=== PATIENT | male | born 1935 | race Two or more races ===

== ENCOUNTER 2019-07-21 02:51 | Inpatient (IN) | payer BC, OTHER ==
[~2019-07-21] VITALS: Ht 175.3 cm; Wt 75.6 kg
[2019-07-21] MEDS ORDERED: SODIUM CHLORIDE 0.9% 1,000 ML IV ONE (03:45)
[2019-07-21] MEDS ORDERED: ONDANSETRON HCL 4 MG/2 ML VIAL IV ONE (03:45)
[2019-07-21] MEDS ORDERED: MORPHINE SULF INJ 2 MG/ML SYRINGE 1ML IV ONE (03:45)
[2019-07-21 03:53] LABS: Basophils # (auto) 0 10 ^3/uL (0-0.2); Basophils % (auto) 0.1 % (0.0-2.0); Eosinophils # (auto) 0 10 ^3/uL (0-0.8); Eosinophils % (auto) 0.2 % (0.0-7.0); Hematocrit 28.1 % (41.0-53.0); Hemoglobin 9.2 g/dL (13.5-17.5); Lymphocytes # (auto) 0.9 10 ^3/uL (0.4-5.4); Mean Corpuscular Hemoglobin 29.5 pg (28.0-32.0); Mean Corpuscular Hgb Conc. 32.7 g/dL (32.0-36.0); Mean Corpuscular Volume 90.3 fL (80.0-100.0); Monocytes # (auto) 1.1 10 ^3/uL (0-1.3); Monocytes % (auto) 6.2 % (0.0-12.0); Neutrophils # (auto) 16.2 10 ^3/uL (1.6-8.6); Neutrophils % (auto) 88.5 % (37.0-80.0); Platelet Count (auto) 345 10^3/uL (140-450); Red Blood Cells 3.12 10^6/uL (4.5-5.90); Red Cell Distribution Width 17.4 % (11.8-14.3); White Blood Cell 18.3 10^3/uL (4.4-10.8)
[2019-07-21 04:07] LABS: INR 1.09 (0.9-1.15)
[2019-07-21 04:11] LABS: Albumin 2.1 g/dL (3.4-5.0); BUN/Creatinine Ratio 28.6; Calcium 8.5 mg/dL (8.5-10.1); Potassium 4.3 mmol/L (3.5-5.1)
[2019-07-21 04:14] LABS: Bilirubin, Total 0.6 mg/dL (0.2-1.0); Total Protein 6.8 g/dL (6.4-8.2)
[2019-07-21] MEDS ORDERED: PPN PER PHARMACY 0 ML IV SCH (06:00)
[2019-07-21] MEDS ORDERED: ONDANSETRON HCL 4 MG/2 ML VIAL IV PRN (06:00)
[2019-07-21 07:05] LABS: Phosphorus 2.8 mg/dL (2.5-4.90)
[2019-07-21 07:09] LABS: Pre Albumin 8.6 mg/dL (20.0-40.0)
--- NOTE | 2019-07-21 07:52 | NUR ---
MS admit from ER FIDELIA RING admitted to tele/MS after SBAR received. Patient oriented to Adelia Rabago, primary RN, unit, room, bed, and unit policies regarding patient care and visiting hours. Patient weighed by bedscale and encouraged to call if they need something. All questions and concerns addressed, patient verbalized understanding. Note: PT IS AWAKE AND ALERT, NO SIGNS OF DISTRESS NOTED AT THIS TIME, WILL CONTINUE TO MONITOR.
[2019-07-21 08:30] VITALS: BP 115/64
[2019-07-21] MEDS: cefTRIAXone 1GM/50ML D5W 50 ML IV SCH (09:17)
[2019-07-21] MEDS: PANTOPRAZOLE 40 MG/10 ML VIAL INJ IV SCH (09:17)
--- NOTE | 2019-07-21 09:30 | NUR ---
Spoke to Grand-daughter/primary caregiver- Cassidy - Medications Medication List, unknown dosages at this time: Lipitor Aspirin Prilosec Tylenol 500mg Q6H PRN pain 1-6 [place] 5/325 mg Q6H PRN pain 7-10 Ativan Ambien Insulin
[2019-07-21] MEDS ORDERED: ENOXAPARIN SOD 40 MG/0.4 ML SYRINGE SC SCH (10:00)
[2019-07-21] MEDS ORDERED: ACET5SOL5 PO (10:05)
[2019-07-21] MEDS ORDERED: HYDR-4833 PO (10:05)
--- NOTE | 2019-07-21 11:25 | NUR ---
WOUND CARE NOTE: Wound care in to see patient per wound care request regarding wounds/pressure injuries that are noted present on admission. Patient is 83 years old male admitted due to dislodged G Tube. Patient is resting in bed in Rm. 203A. Patient is awake but not oriented. Patient appears to be in no pain using [place] Faces Pain Scale. Patient is this and prominent bony prominences. He need assistance in turning and repositioning and his Yoandy score is 12. Skin/wound assessment done with the assistance of patient's nurse, WARD Delvalle. Noted patient's medial sacrum has 5x3x0.3cm necrotic pressure injury. Wound bed is 50% red, 40 % maguire slough, 10% black eschar, clarence wound is bright and dark red. Moderate amount of serous drainage noted on old dressing,no odor noted. Patient's Rt. and Lt posterolateral heel has 3x2cm pressure injury covered with dark brown hyperkeratotic skin. clarence wound is pink/red, slowly blanching. Bilateral heel pressure injuries looks old and resolving, no drainage/odor noted. Photograph of patient's wounds are taken upon admission for reference. Patient's sacral and bilateral heel pressure injuries are Unstageable at this time due to presence of necrotic tissue. Cleansed patient's heels with Betadine and left open to air. Cleansed sacral pressure injury with wound cleanser,patted dry with gauze, applied Thera honey gauze and covered with Opti foam sacral dressing. Patient tolerated well, repositioned for comfort facing his Lt. side, redistributed pressure points with pillows. Bed in low position, call lopez within reach, bed alarm on. RECOMMENDATION: Nursing to continue with Daily cleaning of bilateral heels with Betadine and Daily/PRN dressing change to sacral wound per MD order, Dietary consult, surgical consult for possible sacral wound debridement , frequent turning and repositioning schedule as condition permits, redistribute pressure points with pillows, air mattress (ordered), elevate heels on pillows, continue monitoring by wound care while patient is hospitalized. Addendum: 07/21/19 at 1636 by Ramona Whittaker RN Amended: Links added.
[2019-07-21] MEDS: InsuLIN REG 1unit/0.01ml Soln (100units/ml) SC SCH ×2 (12:00→18:00)
[2019-07-21] MEDS ORDERED: DEXTROSE (50%) 50ML SYRG IV SCH (12:00)
--- NOTE | 2019-07-21 12:35 | NUR ---
SPOKE TO SON YAS AND GRAND DAUGHTER KUMAR, RECEIVED INFORMATION THAT PT IS DNR UNDER [facility], DR. BROWN INFORMED. DNR FORM SIGNED BY DR. BROWN.
--- NOTE | 2019-07-21 13:37 | NUR ---
AIR MATTRESS: Air mattress ordered at [facility],Reference # [id number]; ETA 07/21/19 @1933, Call [facility] if need to follow up at [phone] Addendum: 07/21/19 at 1338 by Ramona Whittaker RN Amended: Links added.
[2019-07-21] MEDS: ACCU-CHEK COMFORT CURVE STRIP VI SCH ×2 (13:40→18:28)
--- NOTE | 2019-07-21 18:10 | NUR ---
PT TRANSFERRED TO AIR MATTRESS.
--- NOTE | 2019-07-21 18:15 | NUR ---
LOW BLOOD SUGAR BLOOD GLUCOSE WAS 6MG/DL, RECHECKED 57MG/DL. WILL GIVE D50 ORDERED
--- NOTE | 2019-07-21 18:55 | NUR ---
PAGED DR. GARCIA RE: LOW BLOOD SUGAR
--- NOTE | 2019-07-21 19:08 | NUR ---
SPOKE WITH DR. GARCIA MADE AWARE OF PT'S LOW BLOOD SUGAR, HE ORDERED HYPOGLYCEMIA PROTOCOL. AND GIVE ANOTHER D50 IF BLOOD SUGAR IS BELOW 100MG/DL.
--- NOTE | 2019-07-21 19:24 | NUR ---
BLOOD SUGAR CHECKED 125MG/DL.
[2019-07-21 20:56] VITALS: BP 130/70
[2019-07-21] MEDS: PPN PER PHARMACY IV NR ×8 (21:54)
[2019-07-22] MEDS: ACCU-CHEK COMFORT CURVE STRIP VI SCH ×4 (01:31→18:13)
[2019-07-22 04:50] VITALS: BP 97/48
[2019-07-22] MEDS: InsuLIN REG 1unit/0.01ml Soln (100units/ml) SC SCH ×4 (06:00→18:15)
[2019-07-22 06:13] LABS: Basophils # (auto) 0.1 10 ^3/uL (0-0.2); Basophils % (auto) 0.4 % (0.0-2.0); Eosinophils # (auto) 0 10 ^3/uL (0-0.8); Eosinophils % (auto) 0.2 % (0.0-7.0); Hematocrit 27.4 % (41.0-53.0); Hemoglobin 9.2 g/dL (13.5-17.5); Lymphocytes # (auto) 0.8 10 ^3/uL (0.4-5.4); Lymphocytes % (auto) 5.5 % (10.0-50.0); Mean Corpuscular Hgb Conc. 33.7 g/dL (32.0-36.0); Mean Corpuscular Volume 89.1 fL (80.0-100.0); Monocytes # (auto) 0.8 10 ^3/uL (0-1.3); Neutrophils # (auto) 13.8 10 ^3/uL (1.6-8.6); Neutrophils % (auto) 88.9 % (37.0-80.0); Platelet Count (auto) 390 10^3/uL (140-450); Red Blood Cells 3.07 10^6/uL (4.5-5.90); Red Cell Distribution Width 17.2 % (11.8-14.3); White Blood Cell 15.5 10^3/uL (4.4-10.8)
[2019-07-22 06:35] LABS: Potassium 3.6 mmol/L (3.5-5.1)
--- NOTE | 2019-07-22 06:43 | NUR ---
RIGHT FA 22G STARTED NOW.
[2019-07-22 06:45] LABS: Albumin 1.9 g/dL (3.4-5.0); BUN/Creatinine Ratio 33.3; Bilirubin, Total 0.5 mg/dL (0.2-1.0); Calcium 8.5 mg/dL (8.5-10.1); Magnesium 2.2 mg/dL (1.6-2.6); Phosphorus 3.2 mg/dL (2.5-4.90); Total Protein 6.4 g/dL (6.4-8.2)
--- NOTE | 2019-07-22 07:00 | NUR ---
Opening Shift Note Received report on the patient. Awake lying in bed. Patient shows no signs of distress at this time. Discussed the plan of care with the patient. Bed in lowest position, side rails up x2, and the call light is within reach. Will continue to monitor.
[2019-07-22] MEDS ORDERED: SODIUM CHLORIDE LOCK 10 ML ONE (08:22)
[2019-07-22] MEDS ORDERED: LIDOCAINE VISCOUS 2% 15ML UD ONE (08:22)
[2019-07-22] MEDS ORDERED: FLUMAZENIL 0.1 MG/ML INJ 10ML MDV IV ONE (08:22)
[2019-07-22] MEDS ORDERED: NALOXONE HCL 0.4 MG/ML VIAL ONE (08:22)
[2019-07-22] MEDS ORDERED: diphenhdrAMINE HCL 50 MG/1 ML VL ONE (08:23)
--- NOTE | 2019-07-22 08:29 | NUR ---
OR Patient down to OR for PEG Tube replacement.
[2019-07-22 09:00] VITALS: BP 96/61
[2019-07-22] MEDS: cefTRIAXone 1GM/50ML D5W 50 ML IV SCH (09:09)
[2019-07-22] MEDS: fentaNYL CITRATE 100 MCG/2 ML VL ONE ×2 (09:12→09:15)
[2019-07-22] MEDS: MIDAZOLAM HCL 5 MG/ML-1ML VIAL ONE ×2 (09:12→09:15)
[2019-07-22] MEDS: PANTOPRAZOLE 40 MG/10 ML VIAL INJ IV SCH (10:54)
--- NOTE | 2019-07-22 11:21 | NUR ---
MD Called Dr. Sebastian per Dr Davis to see if the patient could be discharged or if the patient needs to stay another day. Per Dr. Sebastian the patient should stay to make sure the PEG tube works. Dr Sebastian also stated that he would talk to Dr Davis about the stay.
[2019-07-22 13:11] VITALS: BP 115/71
--- NOTE | 2019-07-22 14:48 | NUR ---
Nutrition Assessment Notes Please refer to link for full assessment notes. Est Energy needs: 9434-6913 kcals (23-25 kcal/kgBW) Est Protein needs: 65-72 gms/day (1.0-1.1 gm/kgBW) Will continue to monitor and reassess prn. Addendum: 07/22/19 at [address] Amended: Links added.
[2019-07-22 17:00] VITALS: BP 116/62
--- NOTE | 2019-07-22 19:08 | NUR ---
Closing Shift Note Gave report to WARD Villatoro. Patient shows no signs of distress.
--- NOTE | 2019-07-22 19:43 | NUR ---
received report from day rn poc reviewed
[2019-07-22] MEDS: PPN PER PHARMACY IV NR ×8 (19:51)
[2019-07-22] MEDS ORDERED: PPN PER PHARMACY IV NR ×9 (20:00)
--- NOTE | 2019-07-22 20:00 | NUR ---
pt pulled out both iv's mittens applied, reoriented pt to poc, charge nurse notified of pts need for sitter
[2019-07-22 21:33] VITALS: BP 111/57
--- NOTE | 2019-07-22 22:50 | NUR ---
sitter at bedside for pts safety
--- NOTE | 2019-07-23 00:25 | NUR ---
Patient transferred to room 286B Patient transferred to room 286B. No signs/symptoms of distress upon departure. Patient care endorsed to WARD Boyd. Addendum: 07/24/19 at 0054 by RUBEN MCNULTY RN RN WRONG DATE: 07-23-2019 CORRECT DATE: 07-24-2019
--- NOTE | 2019-07-23 00:31 | NUR ---
pt moved to 249a with all property, resp even and unlabored, sitter at bedside for pts safety
[2019-07-23] MEDS: ACCU-CHEK COMFORT CURVE STRIP VI SCH ×4 (02:06→18:42)
[2019-07-23 05:00] VITALS: BP 95/54
[2019-07-23] MEDS: InsuLIN REG 1unit/0.01ml Soln (100units/ml) SC SCH ×4 (05:37→18:00)
[2019-07-23 06:02] VITALS: BP 95/54
--- NOTE | 2019-07-23 07:00 | NUR ---
Opening Shift Note received report on the patient. Awake lying in bed. Patient shows no signs of distress at this time. Discussed the plan of care with the patient. Bed in lowest position, side rails up x2, and the call light is within reach. Will continue to monitor.
--- NOTE | 2019-07-23 07:10 | NUR ---
report given to am nurse poc reviewed
[2019-07-23 07:35] LABS: Potassium 3.1 mmol/L (3.5-5.1)
[2019-07-23 07:53] LABS: Albumin 1.7 g/dL (3.4-5.0); BUN/Creatinine Ratio 39.4; Bilirubin, Total 0.4 mg/dL (0.2-1.0); Magnesium 2.2 mg/dL (1.6-2.6); Phosphorus 2.8 mg/dL (2.5-4.90)
[2019-07-23 09:00] VITALS: BP_SYST 124; BP_SYST 148; BP_DIAS 54; BP_DIAS 70
[2019-07-23] MEDS: PANTOPRAZOLE 40 MG/10 ML VIAL INJ IV SCH (09:58)
[2019-07-23] MEDS: cefTRIAXone 1GM/50ML D5W 50 ML IV SCH (09:58)
--- NOTE | 2019-07-23 10:16 | NUR ---
Called and left a message for the son Naman to discuss the patient being discharged tomorrow.
[2019-07-23] MEDS ORDERED: POTASSIUM EFFERVESENT TAB 25 MEQ GT ONE (10:30)
[2019-07-23] MEDS: POTASSIUM CHL 20MEQ/100ML 100 ML IV SCH ×2 (12:00→13:46)
[2019-07-23 13:00] VITALS: BP_SYST 116; BP_SYST 130; BP_DIAS 61; BP_DIAS 84
--- NOTE | 2019-07-23 15:04 | NUR ---
Called son Naman again and left a message regarding his discharge and tube feeding.
[2019-07-23 17:00] VITALS: BP_SYST 117; BP_SYST 123; BP_DIAS 80; BP_DIAS 81
--- NOTE | 2019-07-23 19:30 | NUR ---
Opening Shift Note Assumed care of patient, awake and alert x4. Patient denies pain or shortness of breath at this time. Instructed on plan of care and to call for assistance as needed. Bed is locked in lowest position, side rails x 2 are up, call light is within reach, bed alarm is on, and sitter is noted at the bedside for safety precautions.
[2019-07-23] MEDS ORDERED: PPN PER PHARMACY IV NR ×9 (20:00)
--- NOTE | 2019-07-23 21:17 | NUR ---
Spoke with Son Re: Tube Feeding Called and spoke with son, Naman, regarding clarification on the type of tube feeding patient is on at home. Son Naman states that patient takes Glucerna 1.2cal at home. Will notify hospitalist.
--- NOTE | 2019-07-23 21:59 | NUR ---
Spoke with Hospitalist Re: Tube Feeding Notified hospitalist, Dr. Sandy that per report Dr. Davis wanted the patient to start on tube feedings but wanted clarification on the type of tube feeding patient is on at home. Notified Dr. Sandy that this RN was able to get a hold of patient's son and son stated that patient takes Glucerna 1.2cal at home for tube feedings. Orders received from Dr. Sandy to start Glucerna 1.2cal at 25ml and increase feeding as tolerated. Orders read back and verified. Will carry out order as received. Addendum: 07/24/19 at 0055 by RUBEN MCNULTY RN RN Per Dr. Du doss to D/C PPN once patient is started on tube feeding.
[2019-07-23 22:00] VITALS: BP 138/73
[2019-07-23] MEDS ORDERED: Glucerna 1.2 Cal 1Liter BOTTLE GT SCH ×2 (22:00→22:15)
--- NOTE | 2019-07-23 22:30 | NUR ---
shell trim tool setter Aware of Order for Glucerna Tube Feeding Made chargeback analyst Alex aware that this RN received orders from Dr. Sandy to start tube feeding: Glucerna 1.2cal at 25 ml/hr and increase as tolerated. Per WARD Tatum he will get this RN a bottle of Glucerna 1.2cal. Patient is currently on PPN at 55ml/hr.
[2019-07-24] MEDS: ACCU-CHEK COMFORT CURVE STRIP VI SCH ×3 (00:04→18:31)
[2019-07-24] MEDS: InsuLIN REG 1unit/0.01ml Soln (100units/ml) SC SCH ×3 (00:05→18:31)
--- NOTE | 2019-07-24 00:17 | NUR ---
Report Given Report given to WARD Boyd. Addendum: 07/24/19 at 0102 by RUBEN MCNULTY RN RN WARD Boyd made aware that patient still needs to start tube feedings and we are still waiting on the Glucerna 1.2cal.
--- NOTE | 2019-07-24 00:25 | NUR ---
Patient transferred to room 286B Patient transferred to room 286B. No signs/symptoms of distress upon departure. Patient care endorsed to WARD Boyd.
--- NOTE | 2019-07-24 00:30 | NUR ---
ASSUMED CARE OF PATIENT Patient transferred to room 286-b with sitter. Patient is A&o x3, currently on room air with no s/s of SOB or distress. Denies pain at this time. PIV in left wrist is intact ad patent. Currently infusing PPN at 55ml/hr. G-tube intact; placement verified via auscultation. Abdominal binder in place. Wounds assessed; dressing on sacrum is CDI. Heels are open to air and floated. Patient is currently on bedrest, stating he uses a wheelchair or walker at baseline. POC discussed with patient who verbalizes understanding, however requires reinforcement. Bed is in low locked position with side rails up x2. Call light is within reach and patient encouraged to call for assistance when needed. Sitter is at the bedside for safety. Will continue to monitor for changes PRN.
--- NOTE | 2019-07-24 01:10 | NUR ---
TUBE FEEDING Enteral feeding initiating with Glucerna 1.2 sabino At 25ml/hr as ordered.
--- NOTE | 2019-07-24 04:46 | NUR ---
TUBE FEEDING Residual checked and is 0ml. Patient denies nausea or vomiting. No episodes of diarrhea. Patient is tolerating feeding well. Increased as ordered. Feeding now set at 35ml/hr.
[2019-07-24 05:00] VITALS: BP 120/67
[2019-07-24 06:25] LABS: Potassium 3.3 mmol/L (3.5-5.1)
[2019-07-24 06:31] LABS: Albumin 1.7 g/dL (3.4-5.0); BUN/Creatinine Ratio 39.4; Bilirubin, Total 0.3 mg/dL (0.2-1.0); Calcium 7.8 mg/dL (8.5-10.1); Magnesium 2.1 mg/dL (1.6-2.6); Phosphorus 2.7 mg/dL (2.5-4.90)
--- NOTE | 2019-07-24 07:30 | NUR ---
Opening Shift Note RECEIVED REPORT FROM NOC RN. Assumed care of patient, awake and alert. No S/S of distress/SOB or pain. BED IN LOWEST, LOCKED POSITION WITH SIDERAILS UP x2 AND CALL LIGHT WITHIN REACH AND SITTER AT BEDSIDE. Instructed on POC and to call for assist PRN, will continue to monitor for changes Q1hr and PRN.
[2019-07-24 09:00] VITALS: BP 119/72
[2019-07-24] MEDS: cefTRIAXone 1GM/50ML D5W 50 ML IV SCH (10:47)
[2019-07-24] MEDS: PANTOPRAZOLE 40 MG/10 ML VIAL INJ IV SCH (10:48)
--- NOTE | 2019-07-24 11:35 | NUR ---
SPOKE WITH REAL, CONTRACT ENGINEER ABOUT PATIENT BEING DISCHARGED AND HOSPICE BEING RESUMED. REAL ADVISED TO CONFIRM WITH FAMILY THAT THEY WANT THE PATIENT TO RESUME HOSPICE. REAL ALSO ADVISED TO FAX INFORMATION TO HOSPICE PROVIDER.
--- NOTE | 2019-07-24 11:43 | NUR ---
CALLED AND SPOKE WITH SON, RELL, ABOUT DISCHARGE. SON WISHES TO RESUME HOSPICE FOR THE PATIENT.
--- NOTE | 2019-07-24 11:59 | NUR ---
REQUESTED INFORMATION FAXED TO [facility].
[2019-07-24 13:00] VITALS: BP 120/62
[2019-07-24] MEDS ORDERED: LOPERAMIDE HCL 2 MG CAP PO PRN (15:15)
--- NOTE | 2019-07-24 17:48 | NUR ---
SPOKE WITH FREDDIE FROM [facility] REGARDING RESUMING SERVICE FOR THE PATIENT. THEY WILL RESUME SERVICE FOR THE PATIENT TOMORROW. ATTEMPTED TO CONTACT ON-CALL BOILER HOUSE MECHANIC REGARDING TRANSPORTATION FOR THE PATIENT. INFORMED BY PBX THAT ON-CALL BOILER HOUSE MECHANIC CANNOT BE CONTACTED AFTER 1700.
--- NOTE | 2019-07-24 17:53 | NUR ---
SPOKE WITH RELL, PATIENT'S SON REGARDING TRANSPORTATION. HE ADVISED HE WILL COME CUSTOMER SERVICE CORRESPONDENCE CLERK THE PATIENT.
--- NOTE | 2019-07-24 18:04 | NUR ---
RELL, PATIENT'S SON ADVISED HE IS HAVING CAR ISSUES AND IS UNABLE TO PROVIDE TRANSPORTATION FOR THE PATIENT.
--- NOTE | 2019-07-24 18:06 | NUR ---
PLACED CALL TO [facility], WENT TO VOICE MAIL BOX.
--- NOTE | 2019-07-24 18:09 | NUR ---
RELL, PATIENT'S SON, CALLED BACK. HE SPOKE WITH HOSPICE COMPANY WHO STATED THEY DO NOT ARRANGE TRANSPORTATION.
--- NOTE | 2019-07-24 18:13 | NUR ---
CALLED HOSPICE COMPANY AND LEFT MESSAGE FOR CALL-BACK.
--- NOTE | 2019-07-24 18:30 | NUR ---
SPOKE WITH SURVEYOR CHAIN HELPER OF THE HOSPICE COMPANY. THEY WILL WORK ON ARRANGING TRANSPORTATION FOR THE PATIENT.
--- NOTE | 2019-07-24 20:50 | NUR ---
DISCHARGE PLANNING Spoke with Lucy from [facility]. States she is arranging transportation for patient tomorrow, 07/25/19. Working with son, Naman to ensure proper medical equipment is delivered to the home. Charge nurse notified and Hospitalist to be updated as well. Will continue care.
--- NOTE | 2019-07-24 20:50 | NUR ---
OPENING SHIFT NOTE Assumed care of patient who is A&O x3, currently on RA with no s/s of distress. reports soreness on buttocks. Patient turned to left side and pressure off set with pillows. PIV in left wrist is intact and patent. Flushed wit 10ml NS. PEG tube in place, with abdominal binder to prevent patient from pulling. Feeding currently running at 35ml/hr. Residual is 0ml and patient denies any nausea or vomiting. Feeding increased to 50ml/hr as ordered. POC discussed with patient who verbalizes understanding. Bed is in low locked position with side rails up x2. Call light is within reach. Sitter is at the bedside for patient safety. Will continue to monitor for changes PRN.
[2019-07-24 23:21] VITALS: BP 137/68
[2019-07-25] MEDS: ACCU-CHEK COMFORT CURVE STRIP VI SCH ×3 (00:04→12:03)
--- NOTE | 2019-07-25 01:12 | NUR ---
ROUNDS Lanie-care provided for void of light yellow urine and medium, soft brown BM. Patient repositioned for comfort. Pillows used to offset pressure from sacrum and heels. residual checked and is 0ml. New bottle of Glucerna 1.2 Vick hung and tubing changed. Running at 50ml/hr. Will continue to monitor for changes PRN.
[2019-07-25 05:00] VITALS: BP 115/77
[2019-07-25] MEDS: InsuLIN REG 1unit/0.01ml Soln (100units/ml) SC SCH ×3 (05:53→12:00)
[2019-07-25] MEDS: cefTRIAXone 1GM/50ML D5W 50 ML IV SCH (08:46)
[2019-07-25] MEDS: PANTOPRAZOLE 40 MG/10 ML VIAL INJ IV SCH (08:46)
[2019-07-25 08:58] VITALS: BP 124/76
--- NOTE | 2019-07-25 12:10 | NUR ---
MD BROWN AT BED SIDE
[2019-07-25] MEDS ORDERED: IOHEXOL 300 MG/ML 100ML BOTTLE IJ ONE (12:34)
--- NOTE | 2019-07-25 12:38 | NUR ---
RECEIVED CALL FROM JACKIE METCALF, PER JACKIE TRANSPORTATION HAS BEEN SET FOR TODAY BETWEEN [phone] WITH [[employer] [place]]. PHONE #: [phone]
[2019-07-25 12:51] VITALS: BP 138/79
[2019-07-25 14:02] VITALS: BP 138/79
--- NOTE | 2019-07-25 15:16 | NUR ---
Assessment Patient is an 83-year old male who is confused. Assessment was completed with patient josé manuel Florence ). Patient son Naman informed me patient lived home with him but for the meantime patient will stay with his niece. Naman informed me he helps patient with his ADLs. Patient will return home to his prior living arrangements post discharge. Naman informed me patient is on Hospice with [facility] and would like patient to resume service with agency. Advised Naman there is a Social Service consult to resume Hospice. Informed Naman clinical information will be faxed to [facility]. Naman is patient POA. Informed Naman he has the right to participate in all discharge planning. Naman verbalized understanding and agrees to discharge plan. Placed followed up called to [facility], spoke to Art. Per Art order has been received and they will resume service for patient. Transportation has been arranged with [facility] transport ) between 15:00-16:00 via [employer]. Informed WARD Suarez. Addendum: 07/25/19 at 1517 by JACKIE COON Amended: Links added.
--- NOTE | 2019-07-25 15:35 | NUR ---
DC WOUND PHOTOS TAKEN
--- NOTE | 2019-07-25 15:51 | NUR ---
Discharge instructions given as ordered to POA and patients josé manuel Florence. Naman verbalizes understanding. Patient confused at this time and therefore unable to sign DC paperwork. Encourage to follow up with PMD as instructed through [facility]. All questions and concerns addressed. Medication reconciliation form completed and copy given to patient. IV removed with catheter intact, pressure dressing applied, peg tube clamped and secured. Patient left unit via gurney by [facility] transport.No distress noted at time of departure.
== END 2019-07-25 15:45 | disposition hospice, home (50) | DRG 393 ==
LOC: EDBD 02:51 → ER 02:54 → OVERFLOW 02:55 → CENTRAL 07:53 → EAST 07-22 23:45 → WEST WING 07-24 00:24
PROVIDERS: ADMIT Nurse Practitioner; ATTEND Family Medicine
PROC: 3E0G76Z Introduction of Nutritional Substance into Upper GI, Via Natural or Artificial Opening (ICD-10-PCS; 2019-07-22)
PROC: 0DH63UZ Insertion of Feeding Device into Stomach, Percutaneous Approach (ICD-10-PCS; principal; 2019-07-22 09:09)
DX: Z43.1 Encounter for attention to gastrostomy (principal); E43 Unspecified severe protein-calorie malnutrition; I69.354 Hemiplegia and hemiparesis following cerebral infarction affecting left non-dominant side; N39.0 Urinary tract infection, site not specified; D72.829 Elevated white blood cell count, unspecified; I10 Essential (primary) hypertension; Z51.5 Encounter for palliative care; Z66 Do not resuscitate; F03.90 Unspecified dementia, unspecified severity, without behavioral disturbance, psychotic disturbance, mood disturbance, and anxiety; E11.9 Type 2 diabetes mellitus without complications; Z68.24 Body mass index [BMI] 24.0-24.9, adult
CPT/HCPCS: 36415; 80053; 82040; 82962; 83735; 84100; 84478; 85025; 85610; 87040; 96361; 96374; 96375; C9113; G0378; J0696; J1815; J2250; J2405; J7131

== ENCOUNTER 2024-12-06 20:08 | Emergency (ER) | payer MEDICARE, OTHER ==
[~2024-12-06] VITALS: Ht 167.6 cm; Wt 75.0 kg
[~2024-12-06 20:08] MED LIST: ACET-2058 PO; HYDR-4833 PO
[2024-12-06] MEDS: PIPERACILLIN-TAZOB 3.375GM 100 ML IV ONE ×2 (20:10→20:25)
[2024-12-06] MEDS: SODIUM CHLORIDE 0.9% 2,000 ML IV ONE (20:10)
[2024-12-06] MEDS: TRANEXAMIC ACID 1,000 MG in SODIUM CHL 0.9% 100 ML IV ONE (20:10)
[2024-12-06] MEDS: PANTOPRAZOLE 40 MG/10 ML VIAL INJ IV ONE ×2 (20:10→20:26)
[2024-12-06 20:16] VITALS: PULSE 57; RESP 20
[2024-12-06] MEDS: EPINEPHrine HCL 250 ML IV ONE (20:20)
[2024-12-06] MEDS: TRANEXAMIC ACID 10 ML ONE (20:21)
[2024-12-06 20:30] VITALS: TEMP 100.5
[2024-12-06] MEDS: SODIUM CHLORIDE 0.9% 1,000 ML IV ONE (20:30)
--- NOTE | 2024-12-06 20:32 | ED.PDOC ---
CPR-HPI HPI Comments This is an 89 year-old male brought in via EMS for cardiac arrest. Per EMS, patient was last seen normal and talking X45 minutes prior to EMS arrival. CPR was initiated by family prior to ambulance arrival. Per EMS, CPR was performed for 25 minutes, patients' rhythm was Asystole and PEA. Blood sugar was 99. Patient was given X7 rounds of EPI en route. Per EMS, patient had symptoms of fever and nasal congestion over the past day. Patient takes Eliquis at home and has a PMHX of CVA. Patient arrived to the ED unresponsive, CPR in progress, already intubated. At 20:11, ROSC was noted from patient. Patient was given Dextrose and Bicarb at 20:14. Patient received a L femoral central line and orotracheal intubation. IO below the left knee. Nurse attempted Left EJ IV access, however, he blew and caused a small hematoma. No gag reflex, no coronary reflex. Noted black stool in diaper. OG tube has red gastric content, likely blood. Pt appears pale, cyanotic. Pts pulse was lost at 21:14. CPR was reinitiated at this time. There was no success at achieving any vitals. Pt never took any spontaneous breath on his own. Patients time of called at 21:19. Patients family was consulted about the patients current state and agreed with the decision to stop any resuscitative effort. Initial Vitals BP: 0 HR: 0 RR: 0 O2: 0 Temp: 0 Past Medical History: CVA Past Surgical History: Unknown Social History: Unknown Medications: Unknown Allergies: Unknown HPI: Poor Historian. REVIEW OF SYSTEMS: Review of system is limited given the patient cardiopulmonary arrest. Obtained from EMS CONSTITUTIONAL: Denies acute: fever, diaphoresis, chills, generalized weakness. HEAD: Denies acute: headache, photophobia Eyes: Denies acute: Double vision, vision loss, eye pain, eye discharge. EARS: Denies acute: tinnitus, hearing loss, ear discharge, ear pain, THROAT: Denies acute: sore throat, swelling, difficulty swallowing , pain with swallowing, change in voice. NECK: Denies acute: neck pain, neck swelling, stiff neck. HEART: Denies acute : chest pain, palpitations, LUNGS: Denies acute: SOB, wheezing, cough, hemoptysis ABDOMEN: Denies acute: abdominal pain, Nausea, Vomiting, diarrhea, melena , hematemesis, hematochezia SKIN: Denies acute: rash, redness, lesions, itchiness. EXTREMITIES: Denies acute: calf pain, numbness, tingling, weakness, denies pain in extremity. Denies acute: Low back pain. Neuro: Denies acute: focal neurological deficit, motor or sensory focal neurological deficit, tremors, seizure like activity, confusion, dizziness, change in mental status, loss of bowel or bladder function, cauda equina like symptoms. : Denies acute: dysuria, hematuria, flank pain, increase in urinary frequency. PSYCH: Denies acute: hallucination, suicidal ideation, homicidal ideation. PHYSICAL EXAM: General: --CPR in progress. Head: normocephalic, atraumatic. Neck: supple, trachea is midline, no swelling. Throat: Dry oral mucosa. No gag reflex Eyes:, no erythema, no purulent discharge, no proptosis, no icterus. No corneal reflex Heart: Asystole. Lungs: Intubated, CPR in progress, bag-valve mask in progress. Abdomen: , non distended, soft, no guarding, no rebound, + bowel sounds. Neuro: Unresponsive. GCS is 3. Skin: no petechia, no purpura, patient is noted to be cyanotic and pale., not j aundice. Lower extremities: --no - Pitting edema no deformity, no focal swelling, no calf TTP. Face: no apparent facial droop. ED COURSE: DISCLAIMER: This medical document was created using an electronic medical record system with voice recognition software and computerized dictation system. Although this document has been carefully reviewed, there might still be some phonetic and typographical errors. Occasional wrong-word or "sound-alike" substitutions may have occurred due to the inherent limitations of voice recognition software. These areas are purely typographical due to imperfections of the software programs and do not reflect any compromise in the patient's medical care. Please read the chart carefully and recognize, using context, where these substitutions have occurred. Chief Complaint: CPR Time Seen by MD: 20:20 Reviewed Notes: Nurses Notes, Machine Long Goods Helper Notes, Medications, Allergies Allergies: Coded Allergies: NO KNOWN ALLERGIES (Unverified , 07/21/19) Home Meds Reported Medications Hydrocodone-Acetaminophen ([place] 5/325MG) 1 Tab Tb, 1 TAB PO Q6HP PRN for PAIN SCALE 7 THRU 10, #90 TAB 07/21/19 Acetaminophen (Acetaminophen) 160 Mg/5 Ml Kerry, 500 MG PO Q6HP PRN for PAIN SCALE 1 THRU 6, ML 07/21/19 Information Source: Emergency Med Personnel Mode of Arrival: EMS Timing: Minutes Duration: Total time prior hopital: (45) Inital rhythm: Asystole, PEA Treatment: CPR Physical Exam General Appearance: Other (a) HEENT: Other (a) Neck: Other (a) Respiratory: Other (a) Cardiovascular: Other (a) Breast Exam: Other (a) Gastrointestinal: Other (a) Genitalia: Other (a) Pelvic: Other (a) Rectal: Other (a) Extremities: Other (a) Neurologic: Other (a) Cerebellar Function: Other (a) Reflexes: Other (a) Skin: Other (a) Lymphatic: Other (a) Was a procedure done? 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 Indication: Volume resuscitation Room prepared for procedure: Yes Heart Doctor performed hand hygien: Yes Maximal sterile barrier precau: Mask/Eye shield, Sterile gown, Cap, Sterlie gloves, Large sterlie drape Skin Preparation: Chlorhexidine gluconate Skin preparation completely dr: Yes Insertion site: Left, Femoral Central line catheter type: Ghl-innfdlyq-guh dialysis Number of lumens: 3 Central line exchanged over a: Yes Antiseptic ointment applied to: Yes UTO Consent Pt Unresponsive Intubation Indication: Altered Mental Status Intubation Approach: Orotracheal Intubation size: cm UTO Consent Pt Unresponsive Differential Dx CPR Differential Diagnosis: Cardiopulmonary arrest, Dysrhythmia, Myocardial Infarction, Respiratory Failure X-Ray, Labs, Meds, VS Vital Signs Date Time Temp Pulse Resp B/P (MAP) Pulse Ox O2 Delivery O2 Flow Rate FiO2 12/07/24 06:38 212.9 0 0 Ambu-Bag 0 0 12/06/24 21:57 40 18 37/19 (25) 80 100 12/06/24 21:26 36 11 57/28 (38) 12/06/24 21:22 36 161/95 (117) 12/06/24 21:15 36 17 44/19 (27) 72 12/06/24 21:10 36 18 43/24 (30) 74 12/06/24 21:05 34 18 45/25 (32) 75 12/06/24 21:00 30 18 43/20 (28) 71 12/06/24 21:00 33 12/06/24 20:57 33 18 40/17 (25) 70 12/06/24 20:55 42 18 37/18 (24) 71 12/06/24 20:53 43 18 37/18 (24) 76 12/06/24 20:51 39 18 37/19 (25) 81 12/06/24 20:45 40 18 50/15 (27) 74 12/06/24 20:42 46 17 121/100 (107) 12/06/24 20:37 38 18 56/31 (39) 85 12/06/24 20:35 56/12/06/24 20:35 56/31 12/06/24 20:35 56/31 12/06/24 20:31 53 17 85/39 (54) 99 12/06/24 20:30 100.5 79 22 88/49 (62) 98 100.5 12/06/24 20:18 100.5 0 0 0/0 0 100.5 12/06/24 20:16 100.5 57 20 85/64 (71) 97 100.5 12/06/24 20:16 57 20 Mechanical Ventilator+ 100 100 12/06/24 20:15 49 Lab Test 12/06/24 20:25 12/06/24 20:17 12/06/24 20:14 Range/Units Sodium Level 142 136-145 mmol/L Potassium Level 5.0 3.5-5.1 mmol/L Chloride Level 107 98-107 mmol/L Carbon Dioxide Level 13 L 20-31 mmol/L Anion Gap 22 H 5-15 Blood Urea Nitrogen 32 H 9-23 mg/dL Creatinine 1.21 0.700-1.30 mg/dL Glomerular Filtration Rate Calc 58 >90 mL/min BUN/Creatinine Ratio 26.4 H 10.0-20.0 Serum Glucose 194 H 74-106 mg/dL Calcium Level 8.4 L 8.7-10.4 mg/dL Magnesium Level 2.8 H 1.6-2.6 mg/dL Total Bilirubin 0.5 0.2-1.0 mg/dL Aspartate Amino Transferase (AST) > 6000 H 13-40 U/L Alanine Aminotransferase (ALT) 3719 H 7-40 U/L Alkaline Phosphatase 105 46-116 U/L Total Protein 6.3 5.7-8.2 g/dL Albumin 3.3 3.2-4.8 g/dL Prothrombin Time 22.9 H 9.3-11.8 sec Prothrombin Time INR 2.35 H 0.9-1.15 Activated Partial Thromboplast Time 82.3 *H 24.5-34.5 SEC Lactic Acid Level 11.0 *H 0.4-2.0 mmol/L White Blood Count 11.2 H 4.4-10.8 10^3/uL Red Blood Count 3.65 L 4.5-5.90 10^6/uL Hemoglobin 11.4 L 13.5-17.5 g/dL Hematocrit 36.1 L 41.0-53.0 % Mean Corpuscular Volume 99.1 80.0-100.0 fL Mean Corpuscular Hemoglobin 31.4 28.0-32.0 pg Mean Corpuscular Hemoglobin Concent 31.7 L 32.0-36.0 g/dL Red Cell Distribution Width 16.1 H 11.8-14.3 % Platelet Count 94 L 140-450 10^3/uL Mean Platelet Volume 7.7 6.9-10.8 fL Neutrophils (%) (Auto) 37.0-80.0 % Lymphocytes (%) (Auto) 10.0-50.0 % Monocytes (%) (Auto) 0.0-12.0 % Basophils (%) (Auto) 0.0-2.0 % Neutrophils # (Auto) 1.6-8.6 10 ^3/uL Lymphocytes # (Auto) 0.4-5.4 10 ^3/uL Monocytes # (Auto) 0-1.3 10 ^3/uL Differential Total Cells Counted 100.0 100 Neutrophils % (Manual) 40 37.0-80.0 Band Neutrophils % (Manual) 12 Lymphocytes % (Manual) 40 10.0-50.0 Monocytes % (Manual) 8 0-12 Eosinophils % (Manual) 0 0-7 Basophils % (Manual) 0 0.0-2.0 Metamyelocytes % (manual) 0 Myelocytes % (Manual) 0 Promyelocytes % (Manual) 0 Blast Cells % (Manual) 0 Nucleated Red Blood Cells 2.0 % Reactive Lymphocytes 0 Platelet Estimate Decreased Anisocytosis (manual) Moderate Raj Cells Few Troponin I High Sensitivity 328 *H </=54 ng/L Microbiology Date/Time Source Procedure Growth Status 12/06/24 21:08 Trachea Gram Stain - Final Complete 12/06/24 21:08 Respiratory Culture - Final Staphylococcus aureus Streptococcus pneumoniae Complete 12/06/24 20:25 Blood Blood Culture - Final Eikenella corrodens Complete 12/06/24 20:17 Blood Blood Culture - Final Streptococcus pneumoniae Complete [place] [id number] Ph: [phone] DIAGNOSTIC IMAGING Diagnostic Imaging Report : [id number] Signed PATIENT: FIDELIA RING TACCT: [id number] UNIT: [id number] : 1935 LOC: ER ROOM / BED: / AGE / SEX: 89 / M ADM STATUS: REG ER SERVICE 29 ORDERING PHYSICIAN: SCOT WALSH DO PROCEDURE(s): CXRP - CHEST PORTABLE REASON: CARDIOPULMONARY ARREST ORDER NUMBER(s): [id number], ACCESSION NUMBER(s): [id number] EXAM: XY CHEST PORTABLE CLINICAL HISTORY: CARDIOPULMONARY ARREST TECHNIQUE: Single AP view of the chest WID: COMPARISON: None FINDINGS: Lines and tubes: Endotracheal tube projects 3.6 cm above the blaine. Gastric tube descends beneath the level of the hemidiaphragms and tip not visualized in field of view. Defibrillator pads project over the bilateral chest. Scattered BBs project over the jrror-ujvmsdb-ebws-left chest. Chest: Mild cardiomegaly with pulmonary vascular congestion. Calcified plaque projects over the aortic arch. Mixed airspace opacities in the left greater than right lungs. No pneumothorax. The osseous structures are grossly intact. Degenerative changes of the bilateral shoulders. IMPRESSION: 1. Endotracheal and gastric tubes in place as described. 2. Mild cardiomegaly and pulmonary vascular congestion. 3. Mixed airspace opacities in the wcdk-pkpqmui-zmhe-right lungs. DDX includes multifocal pneumonia, pulmonary edema, atelectasis. ATED BY: AGUILAR CAICEDO MD DICTATED DATE/TIME: 12/06/242058 SIGNED BY: AGUILAR CAICEDO MD SIGNED DATE/TIME: 12/06/242058 CC: Images Reviewed?: Images reviewed and evaluated by me Time of 1ST Reevaluation: 20:50 Reevaluation 1ST: Unchanged Patient Education/Counseling: Pt Unresponsive Family Education/Counseling: No Family Present Medical Screening: No EMC Exist At This Time Comments In the setting of GI bleed, patient was given Protonix. In the setting of possible aspiration and findings on chest x-ray, patient was given Zosyn. In the setting of GI bleed, TXA was given. Blood products emergency transfusion was initiated. Patient required multiple vasopressors multiple boluses of epinephrine and an epinephrine drip then Levophed and dopamine drip. Please see code sheet for more details. SEPSIS Sepsis Screen Physician Orders Electrical Products Engineer (12/06/24 ) Chest Portable (12/06/24 20:30) Ventilator Orders (12/06/24 20:33) Abg W/ Co-Ox (12/06/24 21:00) Electrocardigram (12/06/24 20:59) Electrocardigram (12/06/24 21:59) Communication Order (12/06/24 21:39) Communication Order (12/06/24 21:39) Communication Order (12/06/24 21:39) Vital Signs Date Time Temp Pulse Resp B/P (MAP) Pulse Ox O2 Delivery O2 Flow Rate FiO2 12/07/24 06:38 212.9 0 0 Ambu-Bag 0 0 12/06/24 21:57 40 18 37/19 (25) 80 100 12/06/24 21:26 36 11 57/28 (38) 12/06/24 21:22 36 161/95 (117) 12/06/24 21:15 36 17 44/19 (27) 72 12/06/24 21:10 36 18 43/24 (30) 74 12/06/24 21:05 34 18 45/25 (32) 75 12/06/24 21:00 30 18 43/20 (28) 71 12/06/24 21:00 33 12/06/24 20:57 33 18 40/17 (25) 70 12/06/24 20:55 42 18 37/18 (24) 71 12/06/24 20:53 43 18 37/18 (24) 76 12/06/24 20:51 39 18 37/19 (25) 81 12/06/24 20:45 40 18 50/15 (27) 74 12/06/24 20:42 46 17 121/100 (107) 12/06/24 20:37 38 18 56/31 (39) 85 12/06/24 20:35 56/31 12/06/24 20:35 56/31 12/06/24 20:35 56/31 12/06/24 20:31 53 17 85/39 (54) 99 12/06/24 20:30 100.5 79 22 88/49 (62) 98 100.5 12/06/24 20:18 100.5 0 0 0/0 0 100.5 12/06/24 20:16 100.5 57 20 85/64 (71) 97 100.5 12/06/24 20:16 57 20 Mechanical Ventilator+ 100 100 12/06/24 20:15 49 Laboratory Tests Test 12/06/24 20:14 12/06/24 20:17 White Blood Count 11.2 10^3/uL (4.4-10.8) H Lactic Acid Level 11.0 mmol/L (0.4-2.0) *H Departure 1 Departure Time of Disposition: 21:19 (Time of ) Impression: Primary Impression: Cardiopulmonary arrest Additional Impression: Emergency department triage assessment of Disposition: 20 Condition: Other (Patient ) Critical Care Note Critical Care Time?: Yes (>90min-critical care time only) Heart Score Heart Score: Heart Score Response (Comments) Value History N/A 0 EKG N/A 0 Age N/A 0 Risk Factors N/A 0 Troponin N/A 0 Total 0 Stability Stability form required: No I personally scribed for SCOT WALSH DO ([email or web address]) on 12/06/24 at 20:32. Electronically submitted by Carolee Ray ([facility]). I personally scribed for SCOT WALSH DO ([email or web address]) on 12/06/24 at 20:36. Electronically submitted by Carolee Ray ([employer]). I personally scribed for SC[facility]ALSH [facility] ([facility] on 12/06/24 at 21:09. Electronically submitted by Carolee Ray ([email or web address]). I personally scribed for SCOT WALSH DO ([email or web address]) on 12/06/24 at 21:18. Electronically submitted by Carolee Ray ([employer]). I personally scribed for SCOT WALSH DO ([email or web address]) on 12/06/24 at 21:22. Electronically submitted by Carolee Ray ([employer]). I personally scribed for SCOT WALSH DO ([email or web address]) on 12/07/24 at 02:06. Electronically submitted by Carolee Ray ([employer]). SCOT WALSH DO Dec 06, 2024 20:32
[2024-12-06] MEDS: DOPamine 1600MCG/ML D5W 250 ML IV SCH (20:35)
[2024-12-06] MEDS: EPINEPHrine HCL 250 ML IV SCH (20:35)
[2024-12-06] MEDS: NOREPINEPHRINE 8 MG/250ML KIT 250 ML IV SCH (20:35)
[2024-12-06 20:45] LABS: Hematocrit 36.1 % (41.0-53.0); Hemoglobin 11.4 g/dL (13.5-17.5); Mean Corpuscular Hemoglobin 31.4 pg (28.0-32.0); Mean Corpuscular Volume 99.1 fL (80.0-100.0)
[2024-12-06] MEDS: NOREPINEPHRINE 8 MG/250ML KIT 250 ML IV ONE (20:54)
--- NOTE | 2024-12-06 21:02 | DVH ---
EXAM: XY CHEST PORTABLE CLINICAL HISTORY: CARDIOPULMONARY ARREST TECHNIQUE: Single AP view of the chest WID: COMPARISON: None FINDINGS: Lines and tubes: Endotracheal tube projects 3.6 cm above the blaine. Gastric tube descends beneath t he level of the hemidiaphragms and tip not visualized in field of view. Defibrillator pads project ov er the bilateral chest. Scattered BBs project over the yqcjt-dsozqev-kwod-left chest. Chest: Mild cardiomegaly with pulmonary vascular congestion. Calcified plaque projects over the aortic arch . Mixed airspace opacities in the left greater than right lungs. No pneumothorax. The osseous structures are grossly intact. Degenerative changes of the bilateral shoulders. IMPRESSION: 1. Endotracheal and gastric tubes in place as described. 2. Mild cardiomegaly and pulmonary vascular congestion. 3. Mixed airspace opacities in the cscw-fuhiiln-vvth-right lungs. DDX includes multifocal pneumonia, pulmonary edema, atelectasis.
[2024-12-06 21:08] LABS: INR 2.35 (0.9-1.15); Prothrombin Time 22.9 sec (9.3-11.8)
[2024-12-06 21:15] LABS: Lactic Acid w/Reflex 11.0 mmol/L (0.4-2.0)
[2024-12-06 21:21] LABS: Partial Thromboplastin Time 82.3 SEC (24.5-34.5)
[2024-12-06 21:47] LABS: Albumin 3.3 g/dL (3.2-4.8); Alkaline Phosphatase 105 U/L (46-116); Anion Gap 22 (5-15); BUN/Creatinine Ratio 26.4 (10.0-20.0); Bilirubin, Total 0.5 mg/dL (0.2-1.0); Chloride 107 mmol/L (98-107); Potassium 5.0 mmol/L (3.5-5.1); Sodium 142 mmol/L (136-145); Total Protein 6.3 g/dL (5.7-8.2)
[2024-12-06 21:57] VITALS: BP 37/19; PULSE 40; RESP 18; O2SAT 80
[2024-12-06 21:59] LABS: Alanine Aminotransferase 3719 U/L (7-40)
[2024-12-06 22:00] LABS: Blood Urea Nitrogen 32 mg/dL (9-23); Calcium 8.4 mg/dL (8.7-10.4); Carbon Dioxide 13 mmol/L (20-31); Glucose 194 mg/dL (74-106); Magnesium 2.8 mg/dL (1.6-2.6)
[2024-12-06 22:07] LABS: Total Cells Counted 100.0 (100)
[2024-12-06 22:08] LABS: Anisocytosis Moderate; Nucleated Red Blood Cells % 2.0 %
--- NOTE | 2024-12-07 05:33 | ECG ---
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
--- NOTE | 2024-12-07 05:33 | ECG ---
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
--- NOTE | 2024-12-07 06:38 | RESUS ---
CODE BLUE ASSESSSMENT History of Events History of Events: This is an 89 year-old male brought in via EMS for cardiac arrest. Per EMS, patient was last seen normal and talking X45 minutes prior to EMS arrival. CPR was initiated by family prior to ambulance arrival. Per EMS, CPR was performed for 25 minutes, patients' rhythm was Asystole and PEA. Blood sugar was 99. Patient was given X7 rounds of EPI en route. Per EMS, patient had symptoms of fever and nasal congestion over the past day. Patient takes Eliquis at home and has a PMHX of CVA. Patient arrived to the ED unresponsive, CPR in progress, already intubated. At 20:11, ROSC was noted from patient. Patient was given Dextrose and Bicarb at 20:14. Patient received a L femoral central line and orotracheal intubation. IO below the left knee. Nurse attempted Left EJ IV access, however, he blew and caused a small hematoma. No gag reflex, no coronary reflex. Noted black stool in diaper. OG tube as read gastric content, likely blood. Pt appears pale, cyanotic. Pts pulse was lost at 21:14. CPR was reinitiated at this time. There was no success at achieving any vitals. Pt never took any spontaneous breath on his own. Initial Information Date: Dec 06, 2024 Time: 18:56 Location of Arrest: In Field Arrest Witnessed: Yes CPR started initial time: 18:56 CPR started by whom: FAMILY Last seen well: PRIOR Pre-Hospital Care: ACLS Type of arrest: Cardiac, Respiratory, Adult, Witnessed Spontaneous Respirations: No Pulse Present: No Monitoring: ECG, Pulse Oximetry, Apnea, Telemetry Crash Cart Opened and Supplies: Yes Airway Ventilation Breathing at Onset: Apneic O2 Sat by Pulse Oximetry: 0 Oxygen Delivery Method: Ambu-Bag Oxygen 100% Artificial Ventilation: Bag/Endo tube Intubation Size: 8.0 cuffed Intubated by: EMS Intubated orally: Yes Intubated Nasaly: No Tube secured at: 24 Confirmation: Auscultation, Exhaled CO2 Comments: INTUBATED PRIOR TO ARRIVAL Circulation Circulation : Time: 20:06 Pulse Rate (adult): 0 Blood Pressure Systolic: 0 Blood Pressure Diastolic: 0 Temperature (Fahrenheit): 100.5 Procedure - IV Procedure - IV #1: IV start time: 20:10 IV Side: Left IV Location: Antecubital IV Catheter Type: Saline Lock IV Placed: In Hospital IV Placed by RIAZ IV Gauge: 18 IV Line Care: Saline Flush Procedure - IV #2: IV start time: 21:50 IV Side: Right IV Location: Antecubital IV Catheter Type: Saline Lock IV Placed: In Hospital IV Gauge: 18 IV Line Care: Saline Flush Procedure - Intraosseous Site of Intraosseous: Tibia kyra-medial Intraosseous inserted by: BY EMS PRIOR TO ARRIVAL Medications & Response Medications and Responses #1: Medication Time: 20:08 ADULT Medications Given ADULT: Epinephrine 1 mg, Sodium Bacarbinate 50 meq, D50 (amp), Calcium Chloride 10 mL Route of Administration: IV Heart Rate: 0 EKG Rhythm: Asystole Blood Pressure Systolic: 0 Blood Pressure Diastolic: 0 Respiratory Rate: 0 O2 Sat by Pulse Oximetry: 0 EKG Rhythm: Sinus Bradycardia Comment ROSC AT 2010, BP85/54 HR55 SAO2 96 BS INITIAL 48 REPEAT 287. 2023 NO PULSE CPR STARTED. 2 UNITS OF UNCROSSED BLOOD STARTED. Medications and Responses #2: Medication Time: 20:24 ADULT Medications Given ADULT: Epinephrine 1 mg, Calcium Chloride 10 mL Route of Administration: IV Heart Rate: 0 EKG Rhythm: Asystole Blood Pressure Systolic: 0 Blood Pressure Diastolic: 0 Respiratory Rate: 0 O2 Sat by Pulse Oximetry: 0 IV Line Rate: 1000 EKG Rhythm: Sinus Bradycardia Comment ROSC 2026 BP85/39 HR52 SAT 94. 2034 HR 37 ATROPINE 1MG GIVEN BP 56/31 SAT 80, DOPAMINE DRIP STARTED. 2054 HR 33 BP 40/17 ATROPINE 1MG GIVEN. 2112 NO PULSE CPR STARTED Medications and Responses #3: Medication Time: 21:13 ADULT Medications Given ADULT: Epinephrine 1 mg, Sodium Bacarbinate 50 meq Route of Administration: IV Heart Rate: 0 Blood Pressure Systolic: 0 Blood Pressure Diastolic: 0 Respiratory Rate: 0 O2 Sat by Pulse Oximetry: 0 EKG Rhythm: PEA Medications and Responses #4: Medication Time: 21:16 ADULT Medications Given ADULT: Epinephrine 1 mg Route of Administration: IV EKG Rhythm: PEA Blood Pressure Systolic: 0 Blood Pressure Diastolic: 0 Respiratory Rate: 0 O2 Sat by Pulse Oximetry: 0 IV Line Rate: 1000 EKG Rhythm: PEA Comment 2019 FAMILY REQUESTED TO STOP CPR PT PRONOUNCED. Pacing Pacer Pads Applied and Pacing: Yes Nurses Notes Andrew Coma Scale Eye Opening: None (1) Andrew Coma Scale Verbal: None (1) [place] Coma Scale Motor: None (1) Pupil Reaction: Non Reactive Bedside Blood Glucose: 48 EKG Rhythm: PEA Time Code Ended Time Code Ended: 21:19 Post Arrest Status: Outcome of code: Unsuccessful Time patient pronounced: 21:19 Family notified: Yes Attending called: Yes Code Team Present: SUDEEP FRY RN HS, RIAZ YARN SPOOLER, DARCY RN, YVETTE RN, TAMANNA RN, KATHLEEN ERT, JOSEE ERT,JOSE ERT, DG RT Post Resuscitation Neurologica Pupil Size: 4 Comment: SUDEEP ORDAZ Dec 07, 2024 06:38
== END 2024-12-06 21:19 ==
LOC: EDBD 20:08 → ER 20:08
DX: I46.9 Cardiac arrest, cause unspecified (principal); Z86.73 Personal history of transient ischemic attack (TIA), and cerebral infarction without residual deficits
CPT/HCPCS: 31500; 36415; 36430; 36556; 36600; 71045; 80053; 82805; 83605; 83735; 84484; 85007; 85027; 85610; 85730; 86850; 86900; 86901; 86920; 87040; 87070; 87077; 87186; 87205; 92950; 93005; 96365; 96368; 96375; 99285; J0169; J2470; J2543; J7030; P9016